=== PATIENT | male | born 1975 | race Caucasian/White ===

== ENCOUNTER 2016-09-09 21:05 | Emergency (ER) | payer BC ==
--- NOTE | 2016-09-09 21:38 | CPEKG ---
Heart Rate: 65 RR Interval: 923 P-R Interval: 156 QRSD Interval: 102 QT Interval: 404 QTC Interval: 421 P [place]: 36 QRS [place]: 42 T Wave [place]: -5 EKG Severity - BORDERLINE ECG - EKG Impression: SINUS RHYTHM EKG Impression: BORDERLINE T ABNORMALITIES, INFERIOR LEADS Electronically Signed By: Quinn Parada 10-Sep-2016 04:48:56
--- NOTE | 2016-09-09 21:39 | EDPHY ---
H & P Stated Complaint: asthma attack HPI/ROS: HPI CHIEF COMPLAINT: Shortness of breath, chest discomfort HISTORY OF PRESENT ILLNESS: This patient 40-year-old male, he states he has significant past medical history for asthma, he just arrived from [place] he drove here over 2 days, shortly after arriving approximately 2 hours ago he started developing shortness of breath. He states he thinks he had an asthma attack. States his chest felt very tight. He took 6 puffs of his albuterol inhaler did not really improve so he decided come the emergency room. Upon arrival here he complains of chest discomfort in the center of his chest nonradiating. He denies coughing, wheezing. He does state that he chest feels tight. He denies pleuritic pain. Denies productive cough. Denies fever. Denies nausea vomiting or abdominal pain. Patient tells me that he globally feels weak. He denies back pain neck pain jaw pain or arm pain focal weakness. Past Medical History: Asthma Past Surgical History: Denies recent surgery Social History: 20 years of smoking, quit 3 years ago denies illicit drugs or alcohol. Family History: Noncontributory ROS REVIEW OF SYSTEMS: A comprehensive 10 point review of systems is otherwise negative aside from elements mentioned in the history of present illness. Exam Constitutional appears well nontoxic triage nursing summary reviewed, vital signs reviewed, awake/alert. Eyes normal conjunctivae and sclera, EOMI, PERRLA. HENT normal inspection, atraumatic, moist mucus membranes, no epistaxis, neck supple/ no meningismus, no raccoon eyes. Respiratory clear to auscultation bilaterally, normal breath sounds, no respiratory distress, no wheezing. Cardiovascular rate normal, regular rhythm, no murmur, no edema, distal pulses normal. Gastrointestinal soft, non-tender, no rebound, no guarding, normal bowel sounds, no distension, no pulsatile mass. Genitourinary no CVA tenderness. Musculoskeletal no midline vertebral tenderness, full range of motion, no calf swelling, no tenderness of extremities, no meningismus, good pulses, neurovascularly intact. Skin pink, warm, & dry, no rash, skin atraumatic. Neurologic awake, alert and oriented x 3, AAOx3, moves all 4 extremities equally, motor intact, sensory intact, CN II-XII intact, normal cerebellar, normal vision, normal speech. Psychiatric normal mood/affect. Heme/Lymph/Immune no lymphadenopathy. Differential diagnosis includes but is not limited to: ACS, atypical chest pain , pneumothorax, pneumonia, pulmonary embolism, aortic dissection, congestive heart failure, tumor, musculoskeletal pain, esophageal pain, GERD, peptic ulcer disease, pancreatitis Medical Decision Making: Plan for this patient he is not wheezing or coughing on exam describing chest discomfort. He will have an EKG, troponin, blood work , chest x-ray two view, D-dimer. Rule out ACS. Breathing treatment. Re-evaluation: EKG interpretation by me on record in [facility] system. Impression time of EKG 2135, sinus rhythm rate of 65, T-wave abnormalities in 3 AVF, otherwise unremarkable EKG. ED x-ray chest two view: Negative for acute cardiopulmonary disease. Image interpreted by myself. Please see radiology's full report. 1207: This patient's EKG is nonischemic. Troponin negative. Chest x-ray does not show acute pulmonary disease. 1215AM: This patient agreeable on staying overnight in the hospital for serial enzyme serial EKG. I spoke with the hospitalist service Dr. Segundo who agrees to admit this patient. Reason for admission is chest pain evaluation. Patient's risk factors are that he is had chest pain in the center of his chest described as a dull sensation. Also has a family history of cardiac disease. Also has a longstanding history of smoking tobacco. He is from out of town. I do not have any previous records on him. Specifically I do not have access to a stress test or EKGs. Here in emergency room is negative troponin, nonischemic EKG, normal chest x-ray. He agrees for admission. Patient is safe for admission to the telemetry unit. Source: Patient - Medical/Surgical History Hx Asthma: Yes Hx Chronic Respiratory Disease: No Hx Diabetes: No Hx Cardiac Disease: No Hx Renal Disease: No Hx Cirrhosis: No Hx Alcoholism: No Hx HIV/AIDS: No Hx Splenectomy or Spleen Trauma: No Other PMH: asthma - Social History Smoking Status: Former smoker Constitutional: Initial Vital Signs Temperature (C) 36.9 C 09/09/16 21:10 Heart Rate 86 09/09/16 21:10 Respiratory Rate 20 09/09/16 21:10 Blood Pressure 158/83 H 09/09/16 21:10 O2 Sat (%) 97 09/09/16 21:10 O2 Delivery Mode Room Air Allergies/Adverse Reactions: No Known Allergies Allergy (Unverified 09/09/16 21:13) Home Medications: Medication Instructions Recorded Albuterol 5 mg/ml INH 09/09/16 Medical Decision Making - Diagnostics Imaging Results: Imaging Impressions Chest X-Ray 09/09/16 21:50 Impression: No acute pulmonary disease. - Data Points Laboratory Results: Laboratory Results 09/09/16 21:25 09/09/16 21:25 09/09/16 09/09/16 09/09/16 21:25 21:25 21:25 WBC 6.37 10^3/uL 10^3/uL (3.80-9.50) RBC 4.95 10^6/uL 10^6/uL (4.40-6.38) Hgb 15.1 g/dL g/dL (13.7-17.5) Hct 43.4 % % (40.0-51.0) MCV 87.7 fL fL (81.5-99.8) MCH 30.5 pg pg (27.9-34.1) MCHC 34.8 g/dL g/dL (32.4-36.7) RDW 12.8 % % (11.5-15.2) Plt Count 179 10^3/uL 10^3/uL (150-400) MPV 10.6 fL fL (8.7-11.7) Neut % (Auto) 30.3 % L % (39.3-74.2) Lymph % (Auto) 60.6 % H % (15.0-45.0) [place] % (Auto) 6.6 % % (4.5-13.0) Eos % (Auto) 1.4 % % (0.6-7.6) Baso % (Auto) 0.8 % % (0.3-1.7) Nucleat RBC Rel Count 0.0 % % (0.0-0.2) Absolute Neuts (auto) 1.93 10^3/uL 10^3/uL (1.70-6.50) Absolute Lymphs (auto) 3.86 10^3/uL H 10^3/uL (1.00-3.00) Absolute Monos (auto) 0.42 10^3/uL 10^3/uL (0.30-0.80) Absolute Eos (auto) 0.09 10^3/uL 10^3/uL (0.03-0.40) Absolute Basos (auto) 0.05 10^3/uL 10^3/uL (0.02-0.10) Absolute Nucleated RBC 0.00 10^3/uL 10^3/uL (0-0.01) Immature Gran % 0.3 % % (0.0-1.1) Immature Gran # 0.02 10^3/uL 10^3/uL (0.00-0.10) PT 12.9 SEC SEC (12.0-15.0) INR 0.98 (0.83-1.16) APTT 27.2 SEC SEC (23.0-38.0) D-Dimer < 0.27 ug/mLFEU ug/mLFEU (0.00-0.50) Sodium 140 mEq/L mEq/L (134-144) Potassium 3.1 mEq/L L mEq/L (3.5-5.2) Chloride 104 mEq/L mEq/L (97-110) Carbon Dioxide 23 mEq/l mEq/l (22-31) Anion Gap 13 mEq/L mEq/L (8-16) BUN 25 mg/dL H mg/dL (7-23) Creatinine 1.0 mg/dL mg/dL (0.7-1.3) Estimated GFR > 60 Glucose 100 mg/dL mg/dL (70-100) Calcium 9.2 mg/dL mg/dL (8.5-10.4) Magnesium 1.8 mg/dL mg/dL (1.6-2.3) Total Bilirubin 0.5 mg/dL mg/dL (0.1-1.4) Conjugated Bilirubin 0.3 mg/dL mg/dL (0.0-0.5) Unconjugated Bilirubin 0.2 mg/dL mg/dL (0.0-1.1) AST 28 IU/L IU/L (17-59) ALT 42 IU/L IU/L (21-72) Alkaline Phosphatase 44 IU/L IU/L (38-126) Creatine Kinase 129 IU/L IU/L (0-224) CK-MB (CK-2) Fraction 1.50 ng/mL ng/mL (0-3.19) Troponin I < 0.012 ng/mL ng/mL (0-0.034) NT-Pro-B Natriuret Pep 63 pg/mL pg/mL (0-125) Total Protein 6.9 g/dL g/dL (6.3-8.2) Albumin 4.3 g/dL g/dL (3.5-5.0) Lipase 94.0 IU/L IU/L (23-300) Medications Given: Discontinued Medications Albuterol/Ipratropium (Duoneb) 3 ml IH EDNOW ONE Stop: 09/09/16 21:51 Last Admin: 09/09/16 22:02 Dose: 3 ml Aspirin (Aspirin) 324 mg PO EDNOW ONE Stop: 09/09/16 21:50 Last Admin: 09/09/16 22:01 Dose: 324 mg Sodium Chloride (Ns) 1,000 mls @ 0 mls/hr IV ONCE ONE; Wide Open PRN Reason: Protocol Stop: 09/09/16 21:50 Last Admin: 09/09/16 22:03 Dose: 1,000 mls Sodium Chloride (Ns) 1,000 mls @ 0 mls/hr IV ONCE ONE PRN Reason: Wide Open Stop: 09/09/16 21:51 Last Admin: 09/09/16 22:04 Dose: 1,000 mls Potassium Chloride (Klor Packets) 40 meq PO EDNOW ONE Stop: 09/09/16 22:11 Last Admin: 09/09/16 22:22 Dose: 40 meq Departure - Departure Disposition: [facility] Inpatient Acute Clinical Impression: Chest pain Qualifiers: Chest pain type: unspecified Qualified Code(s): R07.9 - Chest pain, unspecified Condition: Fair Referrals: JOHNATHAN,UNKNOWN [Other] - As per Instructions
[2016-09-09] MEDS ORDERED: NS 1,000 ML IV ONE ×2 (21:49→21:50)
[2016-09-09] MEDS ORDERED: ASPIRIN 81 MG CHEWABLE TAB PO ONE (21:49)
[2016-09-09] MEDS ORDERED: IPRATROPIUM/ALBUTEROL 3 ML DEYVIAL IH ONE (21:50)
[2016-09-09 21:55] LABS: % IMMATURE GRANULYOCYTES 0.3 % (0.0-1.1); ABSOLUTE IMMATURE GRANULOCYTES 0.02 10^3/uL (0.00-0.10); ADD DIFF? NO; ADD MORPH? NO; ADD SCAN? NO; ATYPICAL LYMPHOCYTE FLAG 10 (0-99); FRAGMENT RBC FLAG 0 (0-99); HEMATOCRIT 43.4 % (40.0-51.0); HEMOGLOBIN 15.1 g/dL (13.7-17.5); LEFT SHIFT FLG 0 (0-99); LIPEMIA HEMOLYSIS FLAG 90 (0-99); MEAN CELL HEMOGLOBIN 30.5 pg (27.9-34.1); MEAN CELL HEMOGLOBIN CONCENTR. 34.8 g/dL (32.4-36.7); MEAN CELL VOLUME 87.7 fL (81.5-99.8); MEAN PLATELET VOLUME 10.6 fL (8.7-11.7); PLATELET CLUMPS FLAG 0 (0-99); PLATELET COUNT 179 10^3/uL (150-400); RED BLOOD CELL COUNT 4.95 10^6/uL (4.40-6.38); RED CELL DISTRIBUTION WIDTH 12.8 % (11.5-15.2)
[2016-09-09 21:59] LABS: INR 0.98 (0.83-1.16); PROTIME(PATIENT) 12.9 SEC (12.0-15.0)
[2016-09-09 22:00] LABS: APTT 27.2 SEC (23.0-38.0)
[2016-09-09 22:03] LABS: ALANINE AMINOTRANSFERASE 42 IU/L (21-72); ALBUMIN 4.3 g/dL (3.5-5.0); ALKALINE PHOSPHATASE 44 IU/L (38-126); ANION GAP 13 mEq/L (8-16); ASPARTATE AMINOTRANSFERASE 28 IU/L (17-59); BILIRUBIN,TOTAL 0.5 mg/dL (0.1-1.4); BILIRUBIN-CONJUGATED 0.3 mg/dL (0.0-0.5); BILIRUBIN-UNCONJUGATED 0.2 mg/dL (0.0-1.1); CALCIUM 9.2 mg/dL (8.5-10.4); CARBON DIOXIDE 23 mEq/l (22-31); CHLORIDE 104 mEq/L (97-110); GLOMERULAR FILTRATION RATE > 60; GLUCOSE 100 mg/dL (70-100); MAGNESIUM 1.8 mg/dL (1.6-2.3); POTASSIUM 3.1 mEq/L (3.5-5.2); SODIUM 140 mEq/L (134-144); TOTAL PROTEIN 6.9 g/dL (6.3-8.2)
[2016-09-09] MEDS ORDERED: POTASSIUM CL 20 MEQ PKT PO ONE (22:10)
[2016-09-09 22:15] LABS: TROPONIN I < 0.012 ng/mL (0-0.034)
[2016-09-09] MEDS ORDERED: POTASSIUM CL 20 MEQ TAB ONE (22:18)
[2016-09-09 22:31] VITALS: RESP 16; O2SAT 96
--- NOTE | 2016-09-10 01:31 | GHP ---
[f rep st] HISTORY AND PHYSICAL DATE OF ADMISSION: 09/10/2016 HISTORY OF PRESENT ILLNESS: The patient is a 40-year-old gentleman with history of asthma, who juan eled to [place] today from [place]. He drove, but he had incessant chest tightness that was simila r in nature to his asthma symptoms. He took his inhaler. It did not help. He used it about 6 time s. Ultimately, he felt better. He says his standard asthma symptoms are similar to this chest tigh tness without marina wheezing. He has previously been a smoker, quit about 3 years ago. Smoked for 20 years. Previously been on long-acting inhalers. He is able to exercise and do a treadmill for h usp an hour, lifting weights, etc. Since arriving to [place], he has not really done much. He was just in his hotel room. I think he became somewhat anxious about his symptoms, so he presented to the emergency department. REVIEW OF SYSTEMS: Complete 10-point review of systems conducted and negative, except as noted in t he HPI. PAST MEDICAL HISTORY: Asthma, hypertriglyceridemia. ALLERGIES: No known drug allergies. HOME MEDICATIONS: Albuterol. SOCIAL HISTORY: Previous heavy tobacco and alcohol, but has quit tobacco and moderated alcohol. Bridgette ves in [place]. FAMILY HISTORY: His grandfather had heart disease in his 60s and ultimately from it. PHYSICAL EXAM: Temperature 36.9, blood pressure 150/83, pulse 57-86, breathing 20 times a minute, 9 7% on room air. GENERAL: No acute distress. Sclerae anicteric. Oropharynx clear. Mucous membran es are moist. NECK: Supple without lymphadenopathy or JVD. LUNGS: Clear to auscultation bilatera lly without wheeze. Heart is S1, S2. Abdomen is soft, nontender, nondistended. LOWER EXTREMITIES: No edema. Calves are nontender. SKIN: Without rash. Neurologic exam is nonfocal. LABORATORY DATA: Sodium 140, potassium 3.1, chloride 104, bicarb 23, BUN 25, creatinine 1, glucose 100. LFTs normal. Troponin less than 0.012. Lipase 94. D-dimer less than 0.27. Coags normal. W larissa count 6.37, hematocrit 43, platelets are 179,000. Chest x-ray, interpreted by me, shows no acute cardiopulmonary disease. EKG, interpreted by me, shows sinus at 65, with normal axis and intervals, and a T-wave inversion in lead 3. Otherwise, no ST or T-wave changes. I discussed the case with Dr. Quinn Parada. ASSESSMENT AND PLANS: This 40-year-old gentleman presents with chest tightness consistent with asth ma symptoms. 1. Chest tightness. I think this is very unlikely to represent acute coronary syndrome, particular ly in light of the studies seen thus far. The patient is somewhat anxious to leave the hospital. T he plan is to repeat a stat troponin now. If it is negative, we will let him go home. 2. Asthma. He has an albuterol inhaler. 3. Prophylaxis. The patient is likely leaving the hospital. DISPOSITION: Observation status. Home after his 2nd troponin. Let this serve as a discharge summary as well. /[id number]/MODL
[2016-09-10 02:02] VITALS: BP 111/63; PULSE 63; TEMP 98.1
== END 2016-09-10 02:03 | disposition home or self-care (01) ==
LOC: UNDOADMOB 09-10 00:06
DX: R07.9 Chest pain, unspecified (principal); J45.909 Unspecified asthma, uncomplicated